=== PATIENT | female | born 1985 | race African-American/Black ===

== ENCOUNTER 2016-05-27 02:29 | Emergency (ER) | payer MEDICAID ==
[2016-05-27] MEDS ORDERED: SODIUM CHLORIDE 0.9% 3 ML FLUSH FLUSH PRN (02:34)
[2016-05-27] MEDS ORDERED: NS 1,000 ML IV ONE (02:34)
--- NOTE | 2016-05-27 02:37 | EDPRACDOC ---
- General Information Stated Complaint: HEADACHE/DIARRHEA Time Seen by Provider: 05/27/16 02:31 Home Medications: Home Medications Hydrocodone Bit/Acetaminophen [Lortab 5/325] 1 tab PO Q4-6H PRN #15 tab Promethazine [Phenergan] 25 mg PO Q4-6H PRN #15 tab 04/28/16 Ondansetron HCl [Zofran] 4 mg PO Q6H PRN #15 tab 05/27/16 Allergies/Adverse Reactions: Allergies Allergy/AdvReac Type Severity Reaction Status Date / Time latex Allergy Rash-Locali Verified 04/28/16 11:54 zed shellfish derived Allergy Edema-Oral/ Verified 04/28/16 11:54 Lip - History of Present Illness HPI: PT PRESENTS WITH NEAR SYNCOPE, DIARRHEA, AND ABDOMINAL PAIN ONGOING FOR SOME TIME. Pain Location: Reports: Diffuse Pain Context: Reports: Spontaneous Pain Severity: Moderate Pain Quality: Reports: Cramping Pain Radiation: Reports: No Radiation Female Associated Signs & Symptoms: Reports: Diarrhea. Denies: Fever - Treatment Prior to ED Arrival Reported Medications/Treatment [facility] [employer] Ibuprofen/Acetaminophen (Dose/ 0100 Time) Medications [facility]INNER (Medication/ antibiotic for bacterial vaginosis Dose/Time) EMS Treatment BLS ED Past Medical History - History Reviewed Yes Nurses notes reviewed and agree except as marked - Patient Medical History Psychological History: Reports: Depression - Social Medical History Smoking Status: Former smoker Lives In: Home EDM Review of Systems - Review of Systems ROS Negative Except as Marked: Yes All systems reviewed and were negative except as marked Constitutional: negative: Fever Respiratory: negative: Shortness of Breath Cardiovascular: Syncope (LIGHTHEADED. NO LOC.). negative: Chest Pain Gastrointestinal: Diarrhea, Pain Genitourinary: Other (CURRENTLY BEING TREATED FOR BV.). negative: Dysuria - Physical Exam Constitutional: Alert Oriented to: Time, Person, Place Last recorded Vital Signs: Last Vital Signs Temp 98.6 F 05/27/16 02:48 Pulse 88 05/27/16 02:48 Resp 20 05/27/16 02:48 BP 145/69 05/27/16 02:48 Pulse Ox 97 05/27/16 02:48 Oxygen Pulse Oxygen Saturation 97 O2 Device Room Air Oxygen Flow Rate Fraction of Inspired Oxygen ( FIO2) - HEENT Head: negative: Deformity, Laceration Eye Exam: negative: Conjunctival Injection, Pale Conjunctiva Nose: negative: Congestion, Discharge Neck: negative: Limited ROM - Respiratory/Cardiovascular Respiratory: Normal - CTA. negative: Accessory Muscle Use, Diminished, Tachypnea Cardiovascular: negative: Bradycardia, Tachycardia, Irregular - GI Auscultation: Normal Palpation: Normal Tenderness: Diffuse, Mild. negative: Guarding, Rebound, Rigidity - Integumentary Skin: Warm, Dry. negative: Rash - Neurologic Memory Impaired: Normal Motor Function: Normal Mood Description: Anxious Thought: Coherent Perception: Normal - Results 05/27/16 02:55 05/27/16 02:55 WBC 6.8 xk/uL (3.8-10.8) 05/27/16 02:55 RBC 4.51 xM/uL (4.20-5.40) 05/27/16 02:55 Hgb 9.7 g/dL (12.0-16.0) L 05/27/16 02:55 Hct 31.6 % (36-47) L 05/27/16 02:55 MCV 70 fL (81-99) L 05/27/16 02:55 MCH 21.5 pg (27-32) L 05/27/16 02:55 MCHC 30.7 g/dl (33-36) L 05/27/16 02:55 RDW 18.6 % (11.5-14.5) H 05/27/16 02:55 Plt Count 317 xk/uL (130-400) 05/27/16 02:55 MPV 8.0 fL (7.4-10.4) 05/27/16 02:55 Sodium 142 mEq/L (137-146) 05/27/16 02:55 Potassium 4.2 mEq/L (3.5-5.1) 05/27/16 02:55 Chloride 105 mEq/L (98-107) 05/27/16 02:55 Carbon Dioxide 22 mMOL/L (22-33) 05/27/16 02:55 Anion Gap 19 mEq/L (8-16) H 05/27/16 02:55 BUN 7 MG/DL (7-17) 05/27/16 02:55 Creatinine 0.60 MG/DL (0.52-1.04) 05/27/16 02:55 Estimated GFR (MDRD) > 60 mL/min (>=60) 05/27/16 02:55 Glucose 104 MG/DL (70-99) H 05/27/16 02:55 Calculated Osmolality 271 MOs/Kg (270-290) 05/27/16 02:55 Calcium 9.6 MG/DL (8.4-10.2) 05/27/16 02:55 Total Bilirubin 0.5 MG/DL (0.2-1.3) 05/27/16 02:55 AST 25 IU/L (14-36) 05/27/16 02:55 ALT 29 IU/L (9-52) 05/27/16 02:55 Alkaline Phosphatase 72 IU/L (38-126) 05/27/16 02:55 Total Protein 8.8 G/DL (6.3-8.2) H 05/27/16 02:55 Albumin 4.8 G/DL (3.5-5.0) 05/27/16 02:55 Urine Color Pale yellow 05/27/16 02:33 Urine Clarity Clear 05/27/16 02:33 Urine pH 7.0 (5.0-8.0) 05/27/16 02:33 Ur Specific Cord 1.010 (1.003-1.035) 05/27/16 02:33 Urine Protein Neg (NEG/TRACE) 05/27/16 02:33 Urine Glucose (UA) Neg (NEGATIVE) 05/27/16 02:33 Urine Ketones Neg (NEGATIVE) 05/27/16 02:33 Urine Occult Blood Neg (NEG/TRACE) 05/27/16 02:33 Urine Nitrite Neg (NEGATIVE) 05/27/16 02:33 Urine Bilirubin Neg (NEGATIVE) 05/27/16 02:33 Urine Urobilinogen <2.0 MG/DL (0-1) 05/27/16 02:33 Ur Leukocyte Esterase Neg (NEGATIVE) 05/27/16 02:33 Urine WBC 0-2 (0-5) 05/27/16 02:33 Ur Epithelial Cells 1+ 05/27/16 02:33 Urine Bacteria Few (NEG/FEW) 05/27/16 02:33 Urine Mucus Occ (NEG/OCC) 05/27/16 02:33 Urine Test Neg (NEGATIVE) 05/27/16 02:33 Urine Opiates Screen Neg (NEGATIVE) 05/27/16 02:33 Ur Oxycodone Screen Neg (NEGATIVE) 05/27/16 02:33 Urine Methadone Screen Neg (NEGATIVE) 05/27/16 02:33 Ur Barbiturates Screen Neg (NEGATIVE) 05/27/16 02:33 Ur Tricyclics Screen Neg (NEGATIVE) 05/27/16 02:33 Ur Phencyclidine Scrn Neg (NEGATIVE) 05/27/16 02:33 Ur Amphetamines Screen Neg (NEGATIVE) 05/27/16 02:33 U Methamphetamines Scrn Neg (NEGATIVE) 05/27/16 02:33 Urine MDMA Screen Neg (NEGATIVE) 05/27/16 02:33 U Benzodiazepines Scrn Neg (NEGATIVE) 05/27/16 02:33 Urine Cocaine Screen Neg (NEGATIVE) 05/27/16 02:33 Ur THC Screen Neg (NEGATIVE) 05/27/16 02:33 Lab Results 05/27/16 05/27/16 05/27/16 02:55 02:55 02:33 WBC 6.8 RBC 4.51 Hgb 9.7 L Hct 31.6 L MCV 70 L MCH 21.5 L MCHC 30.7 L RDW 18.6 H Plt Count 317 MPV 8.0 Sodium 142 Potassium 4.2 Chloride 105 Carbon Dioxide 22 Anion Gap 19 H BUN 7 Creatinine 0.60 Estimated GFR (MDRD) > 60 Glucose 104 H Calculated Osmolality 271 Calcium 9.6 Total Bilirubin 0.5 AST 25 ALT 29 Alkaline Phosphatase 72 Total Protein 8.8 H Albumin 4.8 Urine Color Pale yellow Urine Clarity Clear Urine pH 7.0 Ur Specific Cord 1.010 Urine Protein Neg Urine Glucose (UA) Neg Urine Ketones Neg Urine Occult Blood Neg Urine Nitrite Neg Urine Bilirubin Neg Urine Urobilinogen <2.0 Ur Leukocyte Esterase Neg Urine WBC 0-2 Ur Epithelial Cells 1+ Urine Bacteria Few Urine Mucus Occ Urine Test Urine Opiates Screen Ur Oxycodone Screen Urine Methadone Screen Ur Barbiturates Screen Ur Tricyclics Screen Ur Phencyclidine Scrn Ur Amphetamines Screen U Methamphetamines Scrn Urine MDMA Screen U Benzodiazepines Scrn Urine Cocaine Screen Ur THC Screen 05/27/16 05/27/16 02:33 02:33 WBC RBC Hgb Hct MCV MCH MCHC RDW Plt Count MPV Sodium Potassium Chloride Carbon Dioxide Anion Gap BUN Creatinine Estimated GFR (MDRD) Glucose Calculated Osmolality Calcium Total Bilirubin AST ALT Alkaline Phosphatase Total Protein Albumin Urine Color Urine Clarity Urine pH Ur Specific Cord Urine Protein Urine Glucose (UA) Urine Ketones Urine Occult Blood Urine Nitrite Urine Bilirubin Urine Urobilinogen Ur Leukocyte Esterase Urine WBC Ur Epithelial Cells Urine Bacteria Urine Mucus Urine Test Neg Urine Opiates Screen Neg Ur Oxycodone Screen Neg Urine Methadone Screen Neg Ur Barbiturates Screen Neg Ur Tricyclics Screen Neg Ur Phencyclidine Scrn Neg Ur Amphetamines Screen Neg U Methamphetamines Scrn Neg Urine MDMA Screen Neg U Benzodiazepines Scrn Neg Urine Cocaine Screen Neg Ur THC Screen Neg Decision Time to Discharge: 03:28 - Departure Yes I personally saw and evaluated the patient. Disposition: Home Condition: Stable Final Diagnosis: Nausea Diarrhea Qualifiers: Diarrhea type: unspecified type Qualified Code(s): R19.7 - Diarrhea, unspecified Instructions: Acute Diarrhea (ED), Acute Nausea and Vomiting (ED) Education/Counseling Given To: Patient Education/Counseling Given Regarding: Diagnosis, Treatment, Prognosis, Follow Up Referrals: Bernie Pierce [facility] [employer]OR [Primary Care Provider] - Call for Appointment Prescriptions: Ondansetron HCl [Zofran] 4 mg PO Q6H PRN #15 tab PRN Reason: Nausea/Vomiting
[2016-05-27 02:48] VITALS: BMI 41.1
[2016-05-27 02:55] LABS: ALL NEG? YES; MDMA* NEG (NEGATIVE); METHAMPHETAMINES NEG (NEGATIVE); OXYCODONE NEG (NEGATIVE)
[2016-05-27 03:03] LABS: LEUKOCYTES/URINE NEG (NEGATIVE); NITRITE/URINE NEG (NEGATIVE); URINE OCCULT BLOOD NEG (NEG/TRACE); WBC/URINE 0-2 (0-5)
[2016-05-27 03:03] LABS: AUTOMATED BASOPHIL 0.7 % (0-2); AUTOMATED EOSINOPHIL 0.9 % (0-5); AUTOMATED LYMPH 24.3 % (17-44); AUTOMATED NEUTROPHIL 68.1 % (45-76)
[2016-05-27 03:18] LABS: BLOOD UREA NITROGEN 7 MG/DL (7-17); CALCIUM 9.6 MG/DL (8.4-10.2); CALCULATED OSMOLALITY 271 MOs/Kg (270-290); CHLORIDE 105 mEq/L (98-107); GLUCOSE 104 MG/DL (70-99); SODIUM LEVEL 142 mEq/L (137-146); TOTAL PROTEIN 8.8 G/DL (6.3-8.2)
[2016-05-27] MEDS ORDERED: KETOROLAC TROMETH 30 MG/ML VIAL IV STA (03:30)
[2016-05-27 03:59] VITALS: BP 137/59; PULSE 81; TEMP 98
[2016-05-27] MEDS ORDERED: SODIUM CHLORIDE 0.9% 3 ML FLUSH FLUSH SCH (06:00)
== END 2016-05-27 04:00 | disposition home or self-care (01) ==
LOC: ED 02:29
DX: R11.0 Nausea (principal); R19.7 Diarrhea, unspecified
CPT/HCPCS: 36415; 80053; 80307; 81001; 81025; 85025; 96361; 96374; 99284; J1885

== ENCOUNTER 2016-06-09 11:11 | Emergency (ER) | payer MEDICAID ==
[2016-06-09 11:37] VITALS: TEMP 98.8; BMI 41.8
[2016-06-09 12:03] LABS: AUTOMATED BASOPHIL 0.6 % (0-2); AUTOMATED EOSINOPHIL 1.7 % (0-5); AUTOMATED LYMPH 34.7 % (17-44); AUTOMATED MONOCYTE 8.9 % (3-10); AUTOMATED NEUTROPHIL 54.1 % (45-76); MPV 8.1 fL (7.4-10.4)
[2016-06-09 12:16] LABS: LEUKOCYTES/URINE NEG (NEGATIVE); NITRITE/URINE NEG (NEGATIVE); URINE OCCULT BLOOD NEG (NEG/TRACE)
[2016-06-09 12:19] LABS: WBC/URINE 0-2 (0-5)
[2016-06-09 12:21] LABS: BLOOD UREA NITROGEN 12 MG/DL (7-17); CALCIUM 9.4 MG/DL (8.4-10.2); CALCULATED OSMOLALITY 272 MOs/Kg (270-290); CHLORIDE 105 mEq/L (98-107); GLUCOSE 88 MG/DL (70-99); SODIUM LEVEL 142 mEq/L (137-146); TOTAL PROTEIN 7.5 G/DL (6.3-8.2)
[2016-06-09] MEDS ORDERED: NS 1,000 ML IV ONE (12:45)
[2016-06-09] MEDS ORDERED: MORPHINE 4 MG/ML INJECTION IV ONE (12:45)
[2016-06-09] MEDS ORDERED: Pharmacy Review for Metformin - IV Contrast Given SCH (13:00)
--- NOTE | 2016-06-09 13:51 | EDPRACDOC ---
- General Information Chief Complaint: Abdominal Pain Stated Complaint: ABDOMINAL PAIN Time Seen by Provider: 06/09/16 12:34 Information Source: Patient Mode Of Arrival: Car Home Medications: Home Medications Dicyclomine HCl [Bentyl] 10 mg PO Q6H #28 cap 06/09/16 Ondansetron HCl [Zofran] 4 mg PO Q6H PRN #20 tab 06/09/16 Allergies/Adverse Reactions: Allergies Allergy/AdvReac Type Severity Reaction Status Date / Time latex Allergy Rash-Locali Verified 06/09/16 11:37 zed shellfish derived Allergy Edema-Oral/ Verified 06/09/16 11:37 Lip - History of Present Illness Onset: 929 HPI: PT PRESENTS TODAY WITH SUDDEN ONSET 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 PT STATES THAT HER PAIN BEGAN AFTER A BOWEL MOVEMENT, AND WAS FOLLOWED BY SEVERAL EPISODES OF EXPLOSIVE DIARRHEA. PT WAS SEEN AT AND TOLD TO COME HERE FOR R/O APPENDICITIS. DENIES FEVER, N/V, DYSURIA, VAGINAL BLEEDING/DISCHARGE. NO APPARENT DISTRESS. Pain Location: Reports: RLQ Pain Context: Reports: Spontaneous (FOLLOWING BM) Pain Severity: Moderate Pain Quality: Reports: Sharp, Stabbing Pain Radiation: Reports: No Radiation Last Menstrual Period: May 23 : (?) Modifying Factors: improves with: Nothing Female Associated Signs & Symptoms: Reports: Diarrhea Oral Intake: Normal Urinary Output: Normal ED Past Medical History - History Reviewed Yes Nurses notes reviewed and agree except as marked - Patient Medical History Psychological History: Denies: Depression - Social Medical History Smoking Status: Former smoker EDM Review of Systems - Review of Systems ROS Negative Except as Marked: Yes All systems reviewed and were negative except as marked Constitutional: No Symptoms Reported Respiratory: No Symptoms Reported Cardiovascular: No Symptoms Reported Gastrointestinal: Diarrhea, Nausea, Pain Genitourinary: No Symptoms Reported Neurological: No Symptoms Reported Musculoskeletal: No Symptoms Reported Integumentary: No Symptoms Reported - Physical Exam Constitutional: Alert (Awake), No apparent distress Oriented to: Time, Person, Place Last recorded Vital Signs: Last Vital Signs Temp 98.8 F 06/09/16 11:35 Pulse 76 06/09/16 13:55 Resp 18 06/09/16 13:55 BP 129/61 06/09/16 13:55 Pulse Ox 94 06/09/16 13:55 Oxygen Pulse Oxygen Saturation 94 O2 Device Room Air Oxygen Flow Rate Fraction of Inspired Oxygen ( FIO2) - HEENT Head: Normal Eye Exam: Normal Neck: Normal, Denies Pain, Midline - Respiratory/Cardiovascular Respiratory: Normal - CTA Cardiovascular: Normal - GI Auscultation: Normal Palpation: Normal Tenderness: Moderate, RLQ Rueda's Sign: Negative - Bladder: Tender - Musculoskeletal Back: Normal Extremities: Normal - Integumentary Skin: Normal Lymphatics: Normal - Neurologic Cerebellar: Normal Mood Description: Normal Thought: Coherent Perception: Normal - Results 06/09/16 11:44 06/09/16 11:44 WBC 5.1 xk/uL (3.8-10.8) 06/09/16 11:44 RBC 4.39 xM/uL (4.20-5.40) 06/09/16 11:44 Hgb 9.2 g/dL (12.0-16.0) L 06/09/16 11:44 Hct 30.5 % (36-47) L 06/09/16 11:44 MCV 69 fL (81-99) L 06/09/16 11:44 MCH 21.0 pg (27-32) L 06/09/16 11:44 MCHC 30.3 g/dl (33-36) L 06/09/16 11:44 RDW 17.8 % (11.5-14.5) H 06/09/16 11:44 Plt Count 309 xk/uL (130-400) 06/09/16 11:44 MPV 8.1 fL (7.4-10.4) 06/09/16 11:44 Neut % (Auto) 54.1 % (45-76) 06/09/16 11:44 Lymph % (Auto) 34.7 % (17-44) 06/09/16 11:44 Clark % (Auto) 8.9 % (3-10) 06/09/16 11:44 Eos % (Auto) 1.7 % (0-5) 06/09/16 11:44 Baso % (Auto) 0.6 % (0-2) 06/09/16 11:44 Absolute Neuts (auto) 2.75 xk/uL (1.7-8.2) 06/09/16 11:44 Absolute Lymphs (auto) 1.73 xk/uL (0.65-4.75) 06/09/16 11:44 Sodium 142 mEq/L (137-146) 06/09/16 11:44 Potassium 4.7 mEq/L (3.5-5.1) 06/09/16 11:44 Chloride 105 mEq/L (98-107) 06/09/16 11:44 Carbon Dioxide 24 mMOL/L (22-33) 06/09/16 11:44 Anion Gap 18 mEq/L (8-16) H 06/09/16 11:44 BUN 12 MG/DL (7-17) 06/09/16 11:44 Creatinine 0.70 MG/DL (0.52-1.04) 06/09/16 11:44 Estimated GFR (MDRD) > 60 mL/min (>=60) 06/09/16 11:44 Glucose 88 MG/DL (70-99) 06/09/16 11:44 Calculated Osmolality 272 MOs/Kg (270-290) 06/09/16 11:44 Calcium 9.4 MG/DL (8.4-10.2) 06/09/16 11:44 Total Bilirubin 0.2 MG/DL (0.2-1.3) 06/09/16 11:44 AST 16 IU/L (14-36) 06/09/16 11:44 ALT 32 IU/L (9-52) 06/09/16 11:44 Alkaline Phosphatase 60 IU/L (38-126) 06/09/16 11:44 Total Protein 7.5 G/DL (6.3-8.2) 06/09/16 11:44 Albumin 4.2 G/DL (3.5-5.0) 06/09/16 11:44 Urine Color Yellow 06/09/16 11:46 Urine Clarity Sl cldy 06/09/16 11:46 Urine pH 7.0 (5.0-8.0) 06/09/16 11:46 Ur Specific Har[place] 1.010 06/09/16 11:46 Urine Protein Neg (NEG/TRACE) 06/09/16 11:46 Urine Glucose (UA) Neg (NEGATIVE) 06/09/16 11:46 Urine Ketones Neg (NEGATIVE) 06/09/16 11:46 Urine Occult Blood Neg (NEG/TRACE) 06/09/16 11:46 Urine Nitrite Neg (NEGATIVE) 06/09/16 11:46 Urine Bilirubin Neg (NEGATIVE) 06/09/16 11:46 Urine Urobilinogen 0.2 MG/DL (0-1) 06/09/16 11:46 Ur Leukocyte Esterase Neg (NEGATIVE) 06/09/16 11:46 Urine RBC 2-5 (0-5) 06/09/16 11:46 Urine WBC 0-2 (0-5) 06/09/16 11:46 Ur Epithelial Cells 2+ 06/09/16 11:46 Urine Bacteria Few (NEG/FEW) 06/09/16 11:46 Urine Mucus Mod (NEG/OCC) H 06/09/16 11:46 Urine Test Neg (NEGATIVE) 06/09/16 11:46 Lab Results 06/09/16 06/09/16 06/09/16 11:46 11:46 11:44 WBC 5.1 RBC 4.39 Hgb 9.2 L Hct 30.5 L MCV 69 L MCH 21.0 L MCHC 30.3 L RDW 17.8 H Plt Count 309 MPV 8.1 Neut % (Auto) 54.1 Lymph % (Auto) 34.7 Clark % (Auto) 8.9 Eos % (Auto) 1.7 Baso % (Auto) 0.6 Absolute Neuts (auto) 2.75 Absolute Lymphs (auto) 1.73 Sodium Potassium Chloride Carbon Dioxide Anion Gap BUN Creatinine Estimated GFR (MDRD) Glucose Calculated Osmolality Calcium Total Bilirubin AST ALT Alkaline Phosphatase Total Protein Albumin Urine Color Yellow Urine Clarity Sl cldy Urine pH 7.0 Ur Specific [place] 1.010 Urine Protein Neg Urine Glucose (UA) Neg Urine Ketones Neg Urine Occult Blood Neg Urine Nitrite Neg Urine Bilirubin Neg Urine Urobilinogen 0.2 Ur Leukocyte Esterase Neg Urine RBC 2-5 Urine WBC 0-2 Ur Epithelial Cells 2+ Urine Bacteria Few Urine Mucus Mod H Urine Test Neg 06/09/16 11:44 WBC RBC Hgb Hct MCV MCH MCHC RDW Plt Count MPV Neut % (Auto) Lymph % (Auto) Clark % (Auto) Eos % (Auto) Baso % (Auto) Absolute Neuts (auto) Absolute Lymphs (auto) Sodium 142 Potassium 4.7 Chloride 105 Carbon Dioxide 24 Anion Gap 18 H BUN 12 Creatinine 0.70 Estimated GFR (MDRD) > 60 Glucose 88 Calculated Osmolality 272 Calcium 9.4 Total Bilirubin 0.2 AST 16 ALT 32 Alkaline Phosphatase 60 Total Protein 7.5 Albumin 4.2 Urine Color Urine Clarity Urine pH Ur Specific [place] Urine Protein Urine Glucose (UA) Urine Ketones Urine Occult Blood Urine Nitrite Urine Bilirubin Urine Urobilinogen Ur Leukocyte Esterase Urine RBC Urine WBC Ur Epithelial Cells Urine Bacteria Urine Mucus Urine Test Decision Time to Discharge: 14:10 - Departure Disposition: Home Condition: Stable Final Diagnosis: Abdominal pain Instructions: Acute Abdominal Pain (ED) Education/Counseling Given To: Patient Education/Counseling Given Regarding: Diagnosis, Treatment, Follow Up Referrals: Bernie Pierce NP [Primary Care Provider] - One Week John Holder MD [Staff Physician] - One Week Prescriptions: Dicyclomine HCl [Bentyl] 10 mg PO Q6H #28 cap Ondansetron HCl [Zofran] 4 mg PO Q6H PRN #20 tab PRN Reason: Nausea/Vomiting Additional Instructions: BRAT DIET FOR 48 HOURS. IF SYMPTOMS PERSIST, FOLLOW UP WITH PCP/GASTRO FOR OUTPATIENT FOLLOW UP.
--- NOTE | 2016-06-09 14:07 | DIRPT ---
CLINICAL DATA: Right lower quadrant abdominal pain. EXAM: CT ABDOMEN AND PELVIS WITH CONTRAST TECHNIQUE: Multidetector CT imaging of the abdomen and pelvis was performed using the standard protocol following bolus administration of intravenous contrast. CONTRAST: 100 mL Isovue 370 COMPARISON: Acute abdominal series 05/10/2016. CT the abdomen pelvis 04/28/2016. FINDINGS: Lower chest: The lung bases are clear without focal nodule, mass, or airspace disease. The heart size is normal. Hepatobiliary: The liver is unremarkable. No focal lesions are present. The common bile duct and gallbladder are normal. Pancreas: Negative Spleen: Within normal limits Adrenals/Urinary Tract: The adrenal glands are normal bilaterally. Kidneys and ureters are unremarkable. Stomach/Bowel: The stomach and duodenum are within normal limits. The small bowel is unremarkable. The appendix is visualized and normal. The colon is unremarkable. Vascular/Lymphatic: Within normal limits Reproductive: Previously noted right act axial cyst is near completely resolved. There is now a cystic lesion in the left adnexa measuring 5.1 x 5.4 x 4.0 cm. Other: No significant free fluid is present. There is no residual recurrent hernia. Musculoskeletal: The bone windows are unremarkable. IMPRESSION: 1. No acute or focal lesion to explain right lower quadrant pain. 2. Near complete resolution of right adnexal cystic lesion. 3. New left adnexal cystic lesion, likely physiologic. This is almost certainly benign, but follow up ultrasound is recommended in 1 year according to the Society of Radiologists in Ultrasound 2010 Consensus Conference Statement (Zita Leo et al. Management of Asymptomatic Ovarian and Other Adnexal Cysts Imaged at US: Society of Radiologists in Ultrasound Consensus Conference Statement 2010. Radiology 256 (Jan 2010): 943-954.). Electronically Signed By: Juan Titus M.D. On: 06/09/2016 14:04
[2016-06-09 15:01] VITALS: BP 109/53; PULSE 72
== END 2016-06-09 15:05 | disposition home or self-care (01) ==
LOC: ED 11:11
DX: R10.9 Unspecified abdominal pain (principal)
CPT/HCPCS: 36415; 74177; 80053; 81001; 81025; 85025; 96361; 96374; 99283; A9698; J2270